=== PATIENT | male | born 1960 | race Caucasian/White ===

== ENCOUNTER 2019-03-12 06:28 | Day surgery (SDC) | payer OTHER ==
[~2019-03-12] VITALS: Ht 172.7 cm; Wt 140.0 kg
[~2019-03-12 06:28] MED LIST: ACET325 PO; AMLO5 PO; ASPI325 PO; ASPI81CH PO; ATOR40TA PO; CLOP75 PO; EFFIENT10 MG PO; HYDCHL25 PO; ISOMON20 PO; LISI20 PO; LIVALO2 MG PO; LOSHYD PO; METO25 PO; METO25ER PO; METO50ER PO; PRALUENT P75 MG/1 ML SC; Pravachol40 MG PO; ROSU10TA PO; SPIR25 PO; XARELTO20 MG PO
[2019-03-12] MEDS ORDERED: PRALUENT SC (06:48)
[2019-03-12 07:52] LABS: International Normalized Ratio 1.36
[2019-03-12 07:58] LABS: Bun/Creatinine Ratio 32.5 (12.0-20.0); Calcium, Blood 9.3 mg/dL (8.5-10.1); Creatinine, Blood 1.63 mg/dL (0.60-1.20); Magnesium, Blood 2.4 mg/dL (1.6-2.4); Potassium, Blood 4.8 mmol/L (3.5-5.5)
[2019-03-12 08:02] LABS: Thyroid Stimulating Hormone 1.59 uIU/mL (0.360-4.800)
--- NOTE | 2019-03-12 08:20 | NUR ---
CAITLIN EDMONDS AND DR MANNING ARRIVED;TIMEOUT COMPLETED AT 0802. TWO SYNCHRONIZED 200J SHOCKS DELIEVERED - PT TOLERATED WELL.
--- NOTE | 2019-03-12 08:46 | NUR ---
PT SITTING UP DRINKING PEPSI AND ASKING QUESTIONS.
--- NOTE | 2019-03-12 08:59 | NUR ---
DR MANNING IN ROOM TO SEE PT AND HIS IN ROOM.
[2019-03-12] MEDS ORDERED: METO25ER PO (09:05)
--- NOTE | 2019-03-12 09:36 | NUR ---
DISCHARGE INSTRUCTIONS REVIEWED ALL QUESTIONS ANSWERED. 20 G IV DISCONINTINUED FROM RIGHT UPPER ARM WITH INTACT CANNULA. PT ESCORTED OUT VIA WHEELCHAIR ESCORT.
== END 2019-03-14 22:49 | disposition home or self-care (01) ==
LOC: MHTC 06:28
PROVIDERS: Internal Medicine Cardiovascular Disease
DX: I48.0 Paroxysmal atrial fibrillation (principal); I48.1 Persistent atrial fibrillation; I11.0 Hypertensive heart disease with heart failure; I50.9 Heart failure, unspecified; K21.9 Gastro-esophageal reflux disease without esophagitis; E78.5 Hyperlipidemia, unspecified; E66.9 Obesity, unspecified; Z68.42 Body mass index [BMI] 45.0-49.9, adult; Z88.8 Allergy status to other drugs, medicaments and biological substances; Z79.82 Long term (current) use of aspirin; Z79.899 Other long term (current) drug therapy
CPT/HCPCS: 36415; 80048; 83735; 84443; 85610; 92960; 99152; J2250; J3010; J7030

== ENCOUNTER 2021-04-05 22:08 | Emergency (ER) | payer OTHER ==
[~2021-04-05 22:08] MED LIST changes: +PRALUENT SC
== END 2021-04-05 22:25 | disposition left against medical advice (07) ==
LOC: ER 22:08
DX: Z53.21 Procedure and treatment not carried out due to patient leaving prior to being seen by health care provider (principal)

== ENCOUNTER 2021-06-19 07:13 | Day surgery (SDC) | payer OTHER ==
[~2021-06-19] VITALS: Ht 172.7 cm; Wt 127.8 kg
[2021-06-19] MEDS ORDERED: EZET10 (07:50)
--- NOTE | 2021-06-19 08:00 | NUR ---
06/19/21 0800 Shanel Cyr FIRST ATTEMPT MISSED BY KATELIN IN THE RIGHT HAND. SECOND ATTEMPT SUCCESSFUL IN THE RIGHT FOREARM BY KATELIN.
== END 2021-06-19 09:42 | disposition home or self-care (01) ==
LOC: ORSCSDS 07:13
PROVIDERS: Surgery
PROC: 0DJD8ZZ Inspection of Lower Intestinal Tract, Via Natural or Artificial Opening Endoscopic (ICD-10-PCS; principal; 2021-06-19 08:30)
DX: Z12.11 Encounter for screening for malignant neoplasm of colon (principal); I10 Essential (primary) hypertension; E78.5 Hyperlipidemia, unspecified; I48.91 Unspecified atrial fibrillation; E66.01 Morbid (severe) obesity due to excess calories; Z68.41 Body mass index [BMI] 40.0-44.9, adult; Z79.01 Long term (current) use of anticoagulants; Z79.82 Long term (current) use of aspirin; Z79.899 Other long term (current) drug therapy
CPT/HCPCS: J2704; J7120

== ENCOUNTER 2023-07-01 06:26 | Day surgery (SDC) | payer OTHER ==
[~2023-07-01] VITALS: Ht 172.7 cm; Wt 122.0 kg
[~2023-07-01 06:26] MED LIST changes: +Amiodarone HCl200 MG PO; +EZET10; +EZETIMIBE SIMV PO
[2023-07-01 07:03] VITALS: BP 173/126
[2023-07-01 07:15] VITALS: BP 141/82
[2023-07-01 07:20] VITALS: BP 156/92
[2023-07-01 07:25] VITALS: BP 165/100
--- NOTE | 2023-07-01 08:16 | NUR ---
PT AND VERBALIZED UNDERSTANDING OF WRITTEN AND VERBAL D/C INST. IV REMOVED. PT AMB IN RM /S DIFFICULTY. SR 60-70 BPM ON D/C. AMB OUT OF DEPARTMENT /S DIFFICULTY.
[2023-07-01 08:18] VITALS: BP 165/100
== END 2023-07-01 23:48 | disposition home or self-care (01) ==
LOC: MHTC 06:26
DX: I48.0 Paroxysmal atrial fibrillation (principal); R06.02 Shortness of breath; I25.10 Atherosclerotic heart disease of native coronary artery without angina pectoris; I10 Essential (primary) hypertension; K21.9 Gastro-esophageal reflux disease without esophagitis; E78.5 Hyperlipidemia, unspecified; I42.9 Cardiomyopathy, unspecified; E66.9 Obesity, unspecified; Z98.61 Coronary angioplasty status; Z79.82 Long term (current) use of aspirin; Z79.899 Other long term (current) drug therapy; Z88.8 Allergy status to other drugs, medicaments and biological substances
CPT/HCPCS: 92960; 93005; 93010; J2704; J7030